=== PATIENT | female | born 1995 | race Two or more races ===

== ENCOUNTER → 2020-12-07 | Outpatient (REF) | payer OTHER ==
[2020-12-07 14:04] LABS: HEMATOCRIT 42.1 % (36.0-47.0); HEMOGLOBIN 13.9 g/dl (12.0-15.5); MEAN CORPUSCULAR HEMOGLOBIN 29.9 pg (27.0-33.0); MEAN CORPUSCULAR VOLUME 90.5 fl (80.0-96.0); PLATELET COUNT, AUTOMATED 280 10^3/uL (150-450); RED BLOOD COUNT 4.65 10^6/uL (4.00-5.40)
[2020-12-07 15:16] LABS: HEPATITIS C VIRUS ABY INDEX < 0.0 INDEX (<0.8); HIV 1&2 SCREEN CENTAUR NEGATIVE (NEGATIVE)
[2020-12-07 15:31] LABS: CHLAMYDIA DNA AMPLIFICATION NEGATIVE (NEGATIVE); GC DNA AMPLIFICATION NEGATIVE (NEGATIVE)
== END ==
LOC: M PLALAB 10:56
PROVIDERS: ATTEND Obstetrics & Gynecology
DX: Z3A.01 Less than 8 weeks gestation of pregnancy (principal)

== ENCOUNTER → 2021-02-23 | Outpatient (CLI) | payer MEDICAID, SELFPAY ==
--- NOTE | 2021-02-23 15:56 | REP ---
INDICATION: ANATOMY COMPARISON: None. TECHNIQUE: Transabdominal obstetrical ultrasound with color Doppler evaluation. FINDINGS: Examination demonstrates a single live intrauterine in breech presentation. motion is identified by technologist. Placenta is noted anterior and grade 1 without evidence for placenta previa or abruption. Amniotic fluid volume is normal. Cervix measures 3.1 cm in length and appears closed.. Gestational age by LMP 19 weeks 2 days with ESPERANZA 07/18/2021. Gestational age by current measurements 19 weeks 0 days with ESPERANZA 07/20/2021. FHR equals 156 beats per minute. BPD: 4.0 cm at 18 weeks 0 days HC: 15.6 cm at 18 weeks 3 days AC: 13.5 cm at 19 weeks 0 days FL: 3.1 cm at 19 weeks 3 days HL: 3.0 cm at 19 weeks 6 days HC/AC: 1.15 Estimated weight 273 grams (34thpercentile). Anatomical assessment demonstrates normal structures including cranium, choroid plexus, cavum, cerebellum/posterior fossa, facial features, lungs, four-chamber heart/ventricular outflow tracts, diaphragm, stomach, cord insertion/three-vessel cord, kidneys/bladder, and extremities. IMPRESSION: Single live intrauterine in breech presentation demonstrating appropriate interval growth. Limited evaluation of the spine due to positioning. Remainder of the anatomical assessment is complete and normal. <Electronically signed by Doni Sinha > 02/23/21 0599
== END ==
LOC: M PLAIMG 09:27
PROVIDERS: ATTEND Obstetrics & Gynecology
DX: O32.1XX0 Maternal care for breech presentation, not applicable or unspecified (principal); Z36.89 Encounter for other specified antenatal screening; Z3A.19 19 weeks gestation of pregnancy

== ENCOUNTER → 2021-03-23 | Outpatient (CLI) | payer MEDICAID, SELFPAY ==
--- NOTE | 2021-03-23 19:40 | REP ---
INDICATION: F/U ANATOMY SPINE. COMPARISON: Comparison study is from 23 February 2021.. TECHNIQUE: Transabdominal obstetric sonography. FINDINGS: Scanning through the gravid uterus demonstrates a viable single intrauterine gestation in breech lie. motion is observed and heart rate is recorded at 143 beats per minute. A anterior placenta is seen, grade 0, without evidence of placenta previa. Closed cervical length is measured at 3.1 cm transabdominally. No extrauterine abnormality is observed. Amniotic fluid is subjectively normal. spine is still less than optimally seen due to position. The following additional anatomic structures are identified felt to be unremarkable: cranium, cerebral ventricles, face and profile, nose and lips, left ventricular outflow tract view, left-sided stomach, abdominal wall cord insertion, right and left kidney, urinary bladder, upper and lower extremities, three-vessel cord.. Biometry chart: BPD 5.4 cm, 22 weeks 4 days Head circumference 20.8 cm, 22 weeks 6 days Abdominal circumference 18.0 cm, 22 weeks 6 days Femur length 4.3 cm, 23 weeks 6 days Humeral length 4.0 cm, 24 weeks 3 days HC AC ratio normal 1.16 Cephalic index normal 0.71 Estimated weight 575 g, 1 lb 4 oz, 39th percentile for 23 weeks 2 days IMPRESSION: Viable single intrauterine gestation at 23 weeks 2 days by today's composite sonographic criteria. ESPERANZA by today's sonography July 18, 2021. No complication identified. Expected gestational age estimate based on given ESPERANZA 18 July 2021 is 23 weeks 2 days. spine is still less than optimally visualized. <Electronically signed by Hans Orr > 03/23/211935
== END ==
LOC: M WHC 08:23
PROVIDERS: ATTEND Specialist
DX: Z34.02 Encounter for supervision of normal first pregnancy, second trimester (principal)

== ENCOUNTER → 2021-04-29 | Outpatient (CLI) | payer MEDICAID ==
--- NOTE | 2021-04-29 17:39 | REP ---
INDICATION: ANATOMY. OF SPINE ONLY COMPARISON: 03/23/2020 TECHNIQUE: TRANSABDOMINAL FINDINGS: MULTIPLE ULTRASONOGRAPHIC IMAGES OF THE GRAVID UTERUS SHOWS A SINGLE LIVING INTRAUTERINE GESTATION IN THE AIDEE BREECH PRESENTATION. THE PLACENTA IS ANTERIOR AND NOT LOW-LYING. THE CERVIX MEASURES 3.4 CM LENGTH AND IS CLOSED. DOPPLER INTERROGATION OF THE HEART SHOWS A HEART RATE OF 158 BEATS PER MINUTE. THE SUBJECTIVE AMNIOTIC FLUID VOLUME IS WITHIN NORMAL LIMITS. THE CALCULATED AMNIOTIC FLUID INDEX IS 9.2 WITH AN EXPECTED RANGE 9.3 TO 23.0. BPD: 7.5 CM 29 WEEKS 6 DAYS HC: 26.7 CM 29 WEEKS 0 DAYS AC: 25.9 CM 30 WEEKS 0 DAYS FL: 5.7 CM 29 WEEKS 6 DAYS ESTIMATED WEIGHT IS 1406 4 G WHICH IS AT THE 66 PERCENTILE FOR A 28 WEEK 4 DAY GESTATIONAL AGE. ONCE AGAIN, THE SPINE WAS SEEN SUBOPTIMALLY SECONDARY TO THE PRESENTATION. IMPRESSION: SINGLE LIVING INTRAUTERINE GESTATION DESCRIBED ABOVE WITH AN ESTIMATED GESTATIONAL AGE OF 29 WEEKS 4 DAYS VIA COMPOSITE CRITERIA AND AN ESTIMATED DATE OF DELIVERY OF 07/11/2021 BY TODAY'S EXAM. REPEAT EXAMINATION TO CONFIRM SPINE IS RECOMMENDED. <Electronically signed by Marco Wall > 04/29/21 [id number]
== END ==
LOC: M RAD 16:09
PROVIDERS: ATTEND Advanced Practice Midwife
DX: Z36.2 Encounter for other antenatal screening follow-up (principal); Z3A.29 29 weeks gestation of pregnancy; O32.1XX0 Maternal care for breech presentation, not applicable or unspecified

== ENCOUNTER → 2021-05-05 | Outpatient (CLI) | payer MEDICAID, OTHER ==
[2021-05-05 10:51] LABS: HEMATOCRIT 35.5 % (36.0-47.0); HEMOGLOBIN 11.9 g/dl (12.0-15.5); MEAN CORPUSCULAR HEMOGLOBIN 31.6 pg (27.0-33.0); MEAN CORPUSCULAR HGB CONC 33.5 g/dl (32.0-36.5); MEAN CORPUSCULAR VOLUME 94.2 fl (80.0-96.0); PLATELET COUNT, AUTOMATED 243 10^3/uL (150-450); RED BLOOD COUNT 3.77 10^6/uL (4.00-5.40); WHITE BLOOD COUNT 6.7 10^3/uL (4.0-10.0)
== END ==
LOC: M PLALAB 07:49
PROVIDERS: ATTEND Advanced Practice Midwife
DX: Z36.89 Encounter for other specified antenatal screening (principal); Z3A.25 25 weeks gestation of pregnancy

== ENCOUNTER → 2021-06-14 | Outpatient (REF) | payer OTHER, MEDICAID ==
[~2021-06-14] MED LIST: PRENTAB9 PO
== END ==
LOC: M SFHCWAGY 13:23
PROVIDERS: ATTEND Obstetrics & Gynecology
DX: Z36.89 Encounter for other specified antenatal screening (principal)
CPT/HCPCS: 87081; G0463

== ENCOUNTER → 2021-06-16 | Outpatient (CLI) | payer OTHER ==
[~2021-06-16] VITALS: Ht 170.2 cm; Wt 79.0 kg
[2021-06-16] VITALS (8 sets, daily range): BP systolic 118–164; BP diastolic 62–87
[~2021-06-16] MED LIST changes: +HOME MED LIST COMPLETE! XX SCH
[2021-06-16 15:42] LABS: HEMATOCRIT 36.3 % (36.0-47.0); HEMOGLOBIN 12.7 g/dl (12.0-15.5); MEAN CORPUSCULAR HEMOGLOBIN 32.2 pg (27.0-33.0); MEAN CORPUSCULAR VOLUME 92.1 fl (80.0-96.0); PLATELET COUNT, AUTOMATED 233 10^3/uL (150-450); RED BLOOD COUNT 3.94 10^6/uL (4.00-5.40); WHITE BLOOD COUNT 5.7 10^3/uL (4.0-10.0)
[2021-06-16 16:03] LABS: TOTAL PROTEIN,RANDOM URINE 18.8 MG/DL (0.0-12.0)
[2021-06-16 16:05] LABS: ALT/SGPT 24 U/L (12-78); BILIRUBIN,TOTAL 0.3 MG/DL (0.2-1.0); CREATININE FOR GFR 0.44 MG/DL (0.55-1.30); GLOMERULAR FILTRATION RATE > 60.0 (>60); LDH LACTATE DEHYDROGENASE 149 U/L (84-246); URIC ACID 3.3 MG/DL (2.6-6.0)
--- NOTE | 2021-06-16 18:47 | IPN ---
PROGRESS NOTE DATE: 06/16/2021 SUBJECTIVE: Violet is a 25-year-old 2 para 0-0-1-0 at 35 and 3/7th weeks gestation with an EDC of 07/18/2021 based on first trimester ultrasound. She presents to labor and delivery today with report of severe lower pelvic pain and pubic discomfort. She denies vaginal bleeding, leakage of fluid, or regular contractions. The fetus has been active. She reports that this pubic pain started approximately one month ago, it occurs and increases in intensity with activity if she is lying still or sitting still the pain is not present. [facility] in the first trimester. course has been uncomplicated thus far. OBSTETRIC HISTORY: Spontaneous miscarriage. OBSTETRIC LABS: O negative, antibody screen negative, syphilis negative. Gonorrhea and chlamydia negative. Hepatitis B negative. Hepatitis C negative. HIV negative. Rubella immune. Urine culture contaminated. GBS is negative. She did have borderline oligohydramnios which resolved with an ultrasound on 06/16/2021, the fluid was 11.8 cm at that time. PAST MEDICAL HISTORY: Noncontributory. PAST SURGICAL HISTORY: None. FAMILY HISTORY: Noncontributory. SOCIAL HISTORY: She is to an active duty solider. She is a nonsmoker. She denies alcohol and drug use. There is no history of any sexually transmitted diseases. She denies history of abuse, physical, sexual and emotional. ALLERGIES: No known drug allergies. CURRENT MEDICATIONS: vitamin. OBJECTIVE: Temperature 97.9, pulse 114, respirations 16, BP elevated at 164/83 following immediate transfer to the bed, she does appear uncomfortable with movement. BP returned to normotensive range at 144/69, 121/87, 129/62, 118/62. heart rate was 150, moderate variability, positive accelerations, negative decelerations. No pattern of regular contractions. Sterile vaginal exam deferred. Upon palpation of the pubic region the patient appears extremely uncomfortable. I did have spot urine done which returned a result of 0.18, preeclamptic labs are normal. Hemoglobin is 12.7, hematocrit is 36.3 and platelets are 233,000. ASSESSMENT: Intrauterine at 35 and 3/7th weeks. heart rate is Category 1, pubic diastasis. PLAN: Reviewed palliative measures with the patient including abdominal support garment, chiropractic evaluation and treatment as deemed necessary, massage. I offered to write a prescription to aid the patient with walking with a walker for ambulation, she did decline that offer. I reviewed signs and symptoms of labor, movement counts and danger signs to report. She is scheduled for her visit next week. The patient and her have had all their questions answered and are agreeable to discharge home.
== END ==
LOC: M LDO 14:34
PROVIDERS: ATTEND Advanced Practice Midwife
DX: O26.893 Other specified pregnancy related conditions, third trimester (principal); R10.2 Pelvic and perineal pain; Z3A.35 35 weeks gestation of pregnancy
CPT/HCPCS: 36415; 59025; 76816; 76820; 82247; 82565; 82570; 83615; 84156; 84450; 84460; 84550; 85027; G0378; G0463

== ENCOUNTER → 2021-06-16 | Outpatient (CLI) | payer OTHER ==
[~2021-06-16] MED LIST changes: -HOME MED LIST COMPLETE! XX SCH
--- NOTE | 2021-06-16 11:26 | REP ---
INDICATION: F/U ANATOMY SPINE. COMPARISON: 04/29/2021 TECHNIQUE: Transabdominal FINDINGS: Multiple ultrasonographic images of the gravid uterus shows a single living intrauterine gestation in the cephalic presentation. Doppler interrogation of the heart shows a heart rate of 152 beats per minute. The placenta is anterior and not low-lying. The cervix could not be accurately measured due to the low position of the head. The subjective amniotic fluid volume is within normal limits. The calculated amniotic fluid index is 11.8 with an expected range 7.8 to 24.9. BPD: 8.7 cm 35 weeks 2 days AC: 31.2 cm 34 weeks 6 days AC: 31.0 cm 35 weeks 0 days FL: 6.8 cm 35 weeks 0 days The estimated weight is 2562 g which is at the 36 percentile for 35 week 3 day gestational age. Doppler interrogation of the umbilical artery shows an A\B ratio of 2.30. This is within the normal range. The spine was still seen suboptimally. IMPRESSION: Single living intrauterine gestation as described above an estimated gestational age of 35 weeks 1 day via composite criteria and an estimated date of delivery of 07/20/2021 by today's exam. The spine was still suboptimally visualized. <Electronically signed by Marco Wall > 06/16/21 1122
== END ==
LOC: M WHC 08:34
PROVIDERS: ATTEND Advanced Practice Midwife
DX: Z34.83 Encounter for supervision of other normal pregnancy, third trimester (principal); Z3A.35 35 weeks gestation of pregnancy

== ENCOUNTER 2021-06-19 11:07 | Outpatient (CLI) | payer OTHER ==
[~2021-06-19] VITALS: Ht 170.2 cm; Wt 79.4 kg
[2021-06-19 11:25] VITALS: BP 115/67
[2021-06-19] MEDS ORDERED: LR 1,000 ML IV ONE (11:40)
[2021-06-19] MEDS ORDERED: PROMETHAZINE INJ 25 MG/ML VIAL (J2550) IV ONE (11:40)
[2021-06-19 13:30] VITALS: BP 99/63
[2021-06-19 15:21] VITALS: BP 113/64
--- NOTE | 2021-06-19 18:47 | IPNPDOC ---
Text Note Date of Service The patient was seen on 06/19/21. NOTE Labor and Delivery Triage Note: S: 25-year-old 1 at 35 weeks and 6 days presents with nausea vomiting. She has been unable to tolerate anything p.o. Denies vaginal bleeding or LOF. Reports active movement. O: vss, AF irregular ctx Cat 1 tracing Gen: well appearing, NAD Abd: gravid, soft, nttp cx: Long/ closed -Patient provided with 2 L of LR 12.5 mg of Phenergan. She has been able to tolerate oral hydration. A/P: 25-year-old 1 at 35 weeks 6 days with nausea vomiting improved. reassuring status -home with PTL precautions and FKCs. -Zofran Rx filled -f/u at next OB appt Emmy Dunn MD VS,Leatha, I+O VSLeatha, I+O Vital Signs Date Time Temp Pulse Resp B/P (MAP) Pulse Ox O2 Delivery O2 Flow Rate FiO2 06/19/21 15:21 98.8 102 18 113/64 (80) EMMY DUNN MD. Jun 19, 2021 18:47
== END 2021-06-19 17:46 | disposition home or self-care (01) ==
LOC: M LDO 11:07
PROVIDERS: ATTEND Obstetrics & Gynecology
DX: O21.2 Late vomiting of pregnancy (principal); Z3A.35 35 weeks gestation of pregnancy
CPT/HCPCS: 59025; 96360; 96361; G0378; G0463

== ENCOUNTER 2021-07-11 08:30 | Inpatient (IN) | payer OTHER ==
[2021-07-11] VITALS (8 sets, daily range): BP systolic 104–128; BP diastolic 55–83
[~2021-07-11] VITALS: Ht 170.2 cm; Wt 82.6 kg
[2021-07-11] MEDS ORDERED: PRENTAB9 PO (08:50)
[2021-07-11] MEDS ORDERED: HOME MED LIST COMPLETE! XX SCH (08:50)
[2021-07-11] MEDS ORDERED: LACTATED RINGER'S 1000 ML IV STA (10:24)
[2021-07-11] MEDS ORDERED: TRANEXAMIC ACID INJection 1,000 MG in NS 100 ML IV PRN (10:25)
[2021-07-11] MEDS ORDERED: METHYLERGONOVINE MALEATE 0.2 MG/ML VIAL (J2210) IM PRN (10:25)
[2021-07-11] MEDS ORDERED: CARBOPROST TROMETHAMINE 250 MCG/ML AMP IM PRN (10:25)
[2021-07-11] MEDS ORDERED: LIDOCAINE 1% MDV 20ML VIAL INFIL PRN (10:25)
--- NOTE | 2021-07-11 10:51 | HPEPDOC ---
Obstetrical History & Physical General Date of Admission Jul 11, 2021 at 08:30 History of Present Illness 25-year-old at 39+0 weeks gestation. Presents for an induction of labor. Indication for induction: Elective She denies vaginal bleeding, loss of fluid or painful, frequent uterine contractions. She reports regular movement. She denies headache, visual changes, right upper quadrant pain, shortness of breath or chest pain. 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 Sochx: No tobacco, alcohol or drug use FamHx: none labs: Blood type Oneg, antibody screen negative, HepBsAg neg, HIV neg, rubella immune, Hep C antibody negative, RPR nonreactive, CT/GC neg, urine culture negative, 1 hour glucose challenge test 106 , GBS negative Imaging: no anomalies or placental abnormalities. Past Medical History Allergies Coded Allergies: No Known Allergies (Unverified , 06/16/21) Medications Scheduled No.137/Iron/Folic Acd ( Vitamin Tablet) 1 Each Tablet, 1 TAB PO DAILY Physical Examination Physical Examination GENERAL: Alert and oriented times three. ABDOMEN: Gravid and non-tender to touch. FETUS: Is vertex (VTX) by sterile vaginal examination (SVE), fetus is vertex (VTX) by Yovani. HEART RATE: Regular rate and rhythm. LUNGS: Clear to auscultation (CTA). EXTREMITIES: No edema. No clonus. SVE: 1cm, 75%, -3, cephalic, intact, no bloody show. EFM: Cat I [place]: ctxs are rare/irregular. Vital Signs/I&O Vital Signs Date Time Temp Pulse Resp B/P (MAP) Pulse Ox O2 Delivery O2 Flow Rate FiO2 07/11/21 08:55 97.9 116 18 128/83 (98) Laboratory Data 24H LABS Laboratory Tests 2 07/11/21 08:45: Serology Scanned Report Hepatitis B Testing Assessment/Plan Assessment 25yo at 39+0 weeks. Reassuring maternal and status. Plan Admit and orient. Flux Core Welder and consent. Labs and intravenous (IV) per unit protocol. Counseled on r/b/a/i of induction of labor (IOL); she understands her IOL is elective/non-medically indicated. Anticipate . C-S as appropriate. JOE PENA DO Jul 11, 2021 10:51
[2021-07-11] MEDS: miSOPROStol 50MCG 1/2 TABLET SL SCH ×4 (11:30→23:45)
[2021-07-11 11:45] LABS: HEMATOCRIT 37.5 % (36.0-47.0); HEMOGLOBIN 13.2 g/dl (12.0-15.5); MEAN CORPUSCULAR HEMOGLOBIN 32.2 pg (27.0-33.0); MEAN CORPUSCULAR HGB CONC 35.2 g/dl (32.0-36.5); MEAN CORPUSCULAR VOLUME 91.5 fl (80.0-96.0); PLATELET COUNT, AUTOMATED 233 10^3/uL (150-450); WHITE BLOOD COUNT 6.7 10^3/uL (4.0-10.0)
[2021-07-11] MEDS: LR 1,000 ML IV SCH ×3 (13:03→23:24)
--- NOTE | 2021-07-11 23:02 | IPNPDOC ---
Obstetrical Progress Note Date of Service Jul 11, 2021 Subjective Patient feeling mildly uncomfortable with contractions. No LOF/VB Objective Vital Signs Date Time Temp Pulse Resp B/P (MAP) Pulse Ox O2 Delivery O2 Flow Rate FiO2 07/11/21 17:59 97.8 83 18 107/61 (76) Assessment Heart Rate Tracing: Category I Tocometer Contractions: Yes Frequency: every 1-3 min. Strength: palpated as mild Sterile Vaginal Examination Dilation: 1cm Effacement (%): 70% Station: -3 Cervical Consistency: Soft Cervical Position: Anterior Postion/Presentation: Cephalic presentation Assessment and Plan Status: Reassuring Additional Comments Start Pitocin low dose protocol. Cook balloon inserted (60ml/40ml) JOE PENA DO Jul 11, 2021 23:02
[2021-07-11] MEDS ORDERED: PROMETHAZINE INJ 25 MG/ML VIAL (J2550) IV ONE (23:05)
[2021-07-11] MEDS ORDERED: BUTORPHANOL 2 MG/ML INJ (J0595) IV ONE (23:05)
[2021-07-11] MEDS ORDERED: OXYTOCIN DRIP 30 UNITS in IV 1 EA IV SCH (23:05)
[2021-07-12] VITALS (30 sets, daily range): BP systolic 106–167; BP diastolic 58–89
--- NOTE | 2021-07-12 03:28 | IPNPDOC ---
Obstetrical Progress Note Date of Service Jul 12, 2021 Subjective Patient denies LOF,VB. Requesting epidural. Objective Vital Signs Date Time Temp Pulse Resp B/P (MAP) Pulse Ox O2 Delivery O2 Flow Rate FiO2 07/12/21 02:18 96 131/82 (98) 07/11/21 23:55 18 07/11/21 20:00 98.6 Assessment Heart Rate Tracing: Category II Tocometer Contractions: Yes Frequency: every 2-5 min. Sterile Vaginal Examination Dilation: 5 cm Effacement (%): 80% Station: -2 Cervical Consistency: Soft (AROM, Clear fluid) Assessment and Plan Status: Reassuring Additional Comments AROM , clear Continue Pitocin Reassuring maternal and status. JOE PENA DO Jul 12, 2021 03:28
[2021-07-12] MEDS ORDERED: FENTANYL 2MCG/ML ROPIVACAINE 0.2% IN 0.9% NACL 100ML IVBAG As Ordered ONE ×2 (03:32→10:37)
[2021-07-12] MEDS ORDERED: REFRIGERATOR IV KEYS XX PRN (03:45)
[2021-07-12] MEDS ORDERED: EPIDURAL COMMENT XX SCH (03:45)
[2021-07-12] MEDS ORDERED: LACTATED RINGER'S 1000 ML IV PRN (03:45)
[2021-07-12] MEDS: miSOPROStol 50MCG 1/2 TABLET SL SCH (03:45)
[2021-07-12] MEDS ORDERED: ONDANSETRON 4MG/2ML VIAL IV PRN ×2 (03:45→14:55)
[2021-07-12] MEDS ORDERED: diphenhydrAMINE 50MG/ML VIAL (J1200) IV PRN (03:45)
[2021-07-12] MEDS ORDERED: EPIDURAL/PCA KEYS XX PRN (03:45)
[2021-07-12] MEDS ORDERED: ePHEDrine SULFATE 25 MG/5 ML(5MG/ML) SYRINGE IV PRN (03:45)
[2021-07-12] MEDS ORDERED: NALOXONE INJ 0.4MG/1ML VIAL (J2310 PER 1MG) IV PRN (03:45)
[2021-07-12] MEDS: FENTANYL/ROPIVACAINE/NACL BAG 100 ML EPIDURAL SCH ×2 (06:40→10:40)
[2021-07-12] MEDS: LR 1,000 ML IV SCH (10:41)
--- NOTE | 2021-07-12 12:10 | IPNPDOC ---
Obstetrical Progress Note Date of Service Jul 12, 2021 Subjective Reports rectal pressure. Objective Vital Signs Date Time Temp Pulse Resp B/P (MAP) Pulse Ox O2 Delivery O2 Flow Rate FiO2 07/12/21 10:43 98.1 07/12/21 10:32 125 127/73 (91) 07/11/21 23:55 18 Assessment Heart Rate (FHR): 150 Variability: Moderate Accelerations: Positive Decelerations: None Heart Rate Tracing: Category I Tocometer Contractions: Yes Frequency: regular Sterile Vaginal Examination Dilation: 8 cm Effacement (%): 90% Station: 0 Cervical Position: Anterior Postion/Presentation: Cephalic presentation Assessment and Plan Age: 25 : 2 Term: 0 Pre-term: 0 Abortions: 1 Livin EGA at Admission: 39.1 Status: Reassuring Group B Streptococcus: Negative Anticipate: Vaginal Delivery Additional Comments IV Pitocin is at 20 mu/min. LEE CHATMAN CNM Jul 12, 2021 12:10
[2021-07-12] MEDS ORDERED: RHOGAM 300 MCG (1500 IU) INJ (J2790) IM SCH (14:55)
[2021-07-12] MEDS ORDERED: MEASLES,MUMPS,RUBELLA VACCINE INJ (MMR-II) (90707) SC SCH (14:55)
[2021-07-12] MEDS ORDERED: ANUSOL HC CREAM 30GM TOP PRN (14:55)
[2021-07-12] MEDS ORDERED: DIBUCAINE 1% OINTMENT 30GM TOP PRN (14:55)
[2021-07-12] MEDS ORDERED: IBUPROFEN 600MG TAB PO PRN (14:55)
[2021-07-12] MEDS ORDERED: METHYLERGONOVINE MALEATE 0.2 MG/ML VIAL (J2210) IM PRN (14:55)
[2021-07-12] MEDS ORDERED: DOCUSATE SODIUM 100MG CAPSULE PO PRN (14:55)
[2021-07-12] MEDS ORDERED: METHYLERGONOVINE MALEATE 0.2 MG TAB PO PRN (14:55)
[2021-07-12] MEDS ORDERED: ACETAMINOPHEN TAB 650MG DOSE (2X325MG) PO PRN (14:55)
--- NOTE | 2021-07-12 15:51 | DNPDOC ---
[facility] Delivery Note Delivery Note DATE OF DELIVERY: 07/12/21 at 1425 PREDELIVERY DIAGNOSIS: 39-0/7 weeks' gestation and induction of labor. POST DELIVERY DIAGNOSIS: Delivered. PROCEDURE: Spontaneous vaginal delivery. HEAD BAKER: Lee Belle CNM, PASCUAL ANESTHESIA: epidural. ESTIMATED BLOOD LOSS: 300 mL. FINDINGS: 7 pounds 10 ounces; 3450 grams; male , Score 8/9, left compound hand and tachycardia. DELIVERY SUMMARY: Violet is a 25-year-old female who is now a who presented for an elective induction of labor. She received Cytotec, a torre bulb and IV Pitocin for induction of labor. She requested an epidural for pain management. The patient progressed to fully dilated at 1315 and pushed to a l iving male in the IVÁN position with restitution to LOT. A left compound hand was noted. The anterior shoulder delivered with gentle downward traction and the corpus delivered. The baby was placed [id number] and was active and crying with stimulation. The cord was clamped after 2+ minutes and cut by the FOB. A 3- vessel cord was noted. The placenta delivered spontaneously and intact at 1430. Uterine hemostasis was achieved via rapid infusion of IV Pitocin and fundal massage. The vagina, cervix and perineum was inspected and found to have a perineal abrasion that was not repaired due to good hemostasis. Mom plans to formula feed. They are naming him Jt. Both mom and baby are in stable condition. All counts of instruments and sponges are correct. LEE BELLE CNM Jul 12, 2021 15:51
[2021-07-12] MEDS: ACETAMINOPHEN 500 MG TAB PO PRN (18:25)
[2021-07-13 06:00] VITALS: BP 115/68
[2021-07-13] MEDS: ACETAMINOPHEN 500 MG TAB PO PRN ×2 (06:43→23:37)
[2021-07-13] MEDS ORDERED: BOOSTRIX/ADACEL VACCINE (DIPHTH/PERTUSS/ACELL/TETANUS) 0.5ML SYR IM ONE (09:00)
[2021-07-13] MEDS ORDERED: INFLUENZA QUADRIVALENT PF VACCINE 0.5ML SYRINGE IM ONE (09:00)
[2021-07-13] MEDS: PRENATAL VITAMINS CHEWABLE TABLET PO SCH (09:22)
--- NOTE | 2021-07-13 09:49 | IPNPDOC ---
Text Note Date of Service The patient was seen on 07/13/21. NOTE Progress note S: c/o moderate abdominal discomfort O: AVSS NAD Abd: NT, FF ext: NT A/P 25 yo s/p day#1 post Plan K-Pad, abdominal binder routine PP care VS,Fishbone, I+O VS, Fishbone, I+O Vital Signs Date Time Temp Pulse Resp B/P (MAP) Pulse Ox O2 Delivery O2 Flow Rate FiO2 07/13/21 06:00 98.0 94 16 115/68 (84) 100 Room Air I&O- Last 24 Hours up to 6 AM 07/13/21 06:00 Intake Total 1894 ml Output Total 2100 ml Balance -206 ml SHARAD MCCOLLUM MD Jul 13, 2021 09:49
[2021-07-13] MEDS: IBUPROFEN 800 MG TAB PO PRN (16:02)
[2021-07-13 18:00] VITALS: BP 117/70
[2021-07-14] MEDS: IBUPROFEN 800 MG TAB PO PRN (01:56)
[2021-07-14] MEDS: ACETAMINOPHEN 500 MG TAB PO PRN (05:46)
[2021-07-14 06:00] VITALS: BP 108/58
[2021-07-14] MEDS: PRENATAL VITAMINS CHEWABLE TABLET PO SCH (08:24)
== END 2021-07-14 13:45 | disposition home or self-care (01) | DRG 807 ==
LOC: M LDI 08:30 → M OBS 07-12 16:13
PROVIDERS: ADMIT Obstetrics & Gynecology; ATTEND Advanced Practice Midwife
PROC: 3E0P7GC Introduction of Other Therapeutic Substance into Female Reproductive, Via Natural or Artificial Opening (ICD-10-PCS; 2021-07-11)
PROC: 10E0XZZ Delivery of Products of Conception, External Approach (ICD-10-PCS; principal; 2021-07-12)
PROC: 10907ZC Drainage of Amniotic Fluid, Therapeutic from Products of Conception, Via Natural or Artificial Opening (ICD-10-PCS; 2021-07-12)
DX: O32.6XX0 Maternal care for compound presentation, not applicable or unspecified (principal); Z37.0 Single live birth; Z3A.39 39 weeks gestation of pregnancy; O76 Abnormality in fetal heart rate and rhythm complicating labor and delivery

== ENCOUNTER → 2021-11-18 | Outpatient (REF) | payer OTHER | LOC: M SFHCWAGY 17:32 | PROVIDERS: ATTEND Advanced Practice Midwife | DX: Z12.4 Encounter for screening for malignant neoplasm of cervix (principal) ==

== ENCOUNTER → 2021-11-18 | Outpatient (CLI) | payer OTHER ==
[2021-11-18 18:32] LABS: FREE T4 1.22 NG/DL (0.76-1.46); PROLACTIN 9.1 NG/ML; THYROID STIMULATING HORMONE 0.013 uIU/ML (0.358-3.740)
== END ==
LOC: M PLALAB 15:06
PROVIDERS: ATTEND Advanced Practice Midwife
DX: N91.2 Amenorrhea, unspecified (principal)

== ENCOUNTER → 2021-12-29 | Outpatient (CLI) | payer OTHER ==
[2021-12-29 18:06] LABS: BASO % 0.2 % (0.0-1.0); EOS # 0.1 10^3/uL (0.0-0.5); EOS % 1.8 % (0.0-3.0); HEMATOCRIT 38.8 % (36.0-47.0); HEMOGLOBIN 12.9 g/dl (12.0-15.5); LYMPH # 1.8 10^3/uL (1.5-5.0); LYMPH % 36.1 % (24.0-44.0); MEAN CORPUSCULAR HEMOGLOBIN 29.1 pg (27.0-33.0); MEAN CORPUSCULAR HGB CONC 33.2 g/dl (32.0-36.5); MEAN CORPUSCULAR VOLUME 87.4 fl (80.0-96.0); MONO # 0.6 10^3/uL (0.0-0.8); MONO % 12.6 % (2.0-8.0); NEUTROPHILS # 2.5 10^3/uL (1.5-8.5); NEUTROPHILS % 49.1 % (36.0-66.0); PLATELET COUNT, AUTOMATED 326 10^3/uL (150-450); RED BLOOD COUNT 4.44 10^6/uL (4.00-5.40); WHITE BLOOD COUNT 5.1 10^3/uL (4.0-10.0)
[2021-12-29 18:45] LABS: ALBUMIN 3.5 GM/DL (3.2-5.2); ALT/SGPT 51 U/L (12-78); BILIRUBIN,TOTAL 0.3 MG/DL (0.2-1.0); BLOOD UREA NITROGEN 12 MG/DL (7-18); CALCIUM LEVEL 9.3 MG/DL (8.5-10.1); CARBON DIOXIDE LEVEL 27 MEQ/L (21-32); CHLORIDE LEVEL 107 MEQ/L (98-107); CREATININE FOR GFR 0.45 MG/DL (0.55-1.30); FREE T4 2.83 NG/DL (0.76-1.46); GLOMERULAR FILTRATION RATE > 60.0 (>60); GLUCOSE, FASTING 74 MG/DL (70-100); POTASSIUM SERUM 4.2 MEQ/L (3.5-5.1); SODIUM LEVEL 138 MEQ/L (136-145); THYROID STIMULATING HORMONE < 0.005 uIU/ML (0.358-3.740); TOTAL PROTEIN 6.5 GM/DL (6.4-8.2)
== END ==
LOC: M PLALAB 14:45
PROVIDERS: ATTEND Nurse Practitioner Adult Health
DX: K59.00 Constipation, unspecified (principal)

== ENCOUNTER → 2022-01-07 | Outpatient (CLI) | payer OTHER ==
[2022-01-07 14:09] LABS: FREE T4 3.23 NG/DL (0.76-1.46); THYROID STIMULATING HORMONE < 0.005 uIU/ML (0.358-3.740)
[2022-01-07 14:11] LABS: THYROID PEROXIDASE ANTIBODY > 1300.0 U/ML (<60.0)
== END ==
LOC: M PLALAB 11:08
PROVIDERS: ATTEND Nurse Practitioner Family
DX: E05.00 Thyrotoxicosis with diffuse goiter without thyrotoxic crisis or storm (principal)

== ENCOUNTER → 2022-01-20 | Outpatient (CLI) | payer OTHER | LOC: M RAD 12:49 | PROVIDERS: ATTEND Internal Medicine Endocrinology, Diabetes & Metabolism | DX: E05.00 Thyrotoxicosis with diffuse goiter without thyrotoxic crisis or storm (principal) ==

== ENCOUNTER → 2022-01-21 | Outpatient (CLI) | payer OTHER | LOC: M RAD 12:15 | PROVIDERS: ATTEND Internal Medicine Endocrinology, Diabetes & Metabolism | DX: E05.00 Thyrotoxicosis with diffuse goiter without thyrotoxic crisis or storm (principal) ==

== ENCOUNTER → 2022-03-07 | Outpatient (CLI) | payer OTHER ==
[2022-03-07 17:56] LABS: FREE T4 0.27 NG/DL (0.76-1.46); THYROID STIMULATING HORMONE 81.3 uIU/ML (0.358-3.740)
[2022-03-07 18:00] LABS: TOTAL T3 68.4 NG/DL (60.0-181.0)
== END ==
LOC: M PLALAB 15:19
PROVIDERS: ATTEND Nurse Practitioner Family
DX: E05.00 Thyrotoxicosis with diffuse goiter without thyrotoxic crisis or storm (principal)

== ENCOUNTER → 2022-04-14 | Outpatient (CLI) | payer OTHER | LOC: M RAD 16:25 | PROVIDERS: ATTEND Family Medicine | DX: L72.3 Sebaceous cyst (principal) ==

== ENCOUNTER → 2022-05-19 | Outpatient (CLI) | payer OTHER ==
[2022-05-19 16:09] LABS: FREE T4 1.18 NG/DL (0.76-1.46); THYROID STIMULATING HORMONE 0.129 uIU/ML (0.358-3.740)
== END ==
LOC: M PLALAB 12:30
PROVIDERS: ATTEND Nurse Practitioner Family
DX: E06.3 Autoimmune thyroiditis (principal)

== ENCOUNTER → 2022-06-16 | Outpatient (CLI) | payer OTHER ==
[2022-06-16 18:57] LABS: FREE T4 1.1 NG/DL (0.76-1.46); THYROID STIMULATING HORMONE 0.023 uIU/ML (0.358-3.740)
== END ==
LOC: M PLALAB 14:21
PROVIDERS: ATTEND Nurse Practitioner Family
DX: E06.3 Autoimmune thyroiditis (principal)

== ENCOUNTER → 2022-09-13 | Outpatient (CLI) | payer OTHER ==
[2022-09-13 18:29] LABS: FREE T4 1.16 NG/DL (0.76-1.46); THYROID STIMULATING HORMONE 0.668 uIU/ML (0.358-3.740)
== END ==
LOC: M PLALAB 14:59
PROVIDERS: ATTEND Nurse Practitioner Family
DX: E06.3 Autoimmune thyroiditis (principal)

== ENCOUNTER → 2023-01-09 | Outpatient (REF) | payer OTHER | LOC: M LAB REF 16:52 | PROVIDERS: ATTEND Nurse Practitioner Adult Health | DX: N89.8 Other specified noninflammatory disorders of vagina (principal) ==

== ENCOUNTER → 2023-01-13 | Outpatient (CLI) | payer OTHER ==
[2023-01-13 16:21] LABS: THYROID STIMULATING HORMONE 0.746 uIU/ML (0.55-4.78)
[2023-01-13 16:22] LABS: FREE T4 1.23 NG/DL (0.89-1.76)
== END ==
LOC: M PLALAB 14:04
PROVIDERS: ATTEND Internal Medicine Endocrinology, Diabetes & Metabolism
DX: E06.3 Autoimmune thyroiditis (principal)

== ENCOUNTER → 2023-03-09 | Outpatient (REF) | payer OTHER | LOC: M SFHCWAGY 17:31 | PROVIDERS: ATTEND Nurse Practitioner Family | DX: Z12.4 Encounter for screening for malignant neoplasm of cervix (principal) | CPT/HCPCS: 87624; G0123; G0463 ==